=== PATIENT | female | born 1965 | race Caucasian/White ===

== ENCOUNTER → 2017-02-04 | Outpatient (CLI) | payer OTHER ==
[~2017-02-04] MED LIST: ESTR0.5T TD; GABA300C10 PO; SPIR25TA3 PO; estradiol PO
== END | disposition home or self-care (01) ==
LOC: CFH 09:53
PROVIDERS: ATTEND Neurological Surgery
DX: M47.897 Other spondylosis, lumbosacral region (principal); M47.895 Other spondylosis, thoracolumbar region; M51.26 Other intervertebral disc displacement, lumbar region; M48.07 Spinal stenosis, lumbosacral region
CPT/HCPCS: 72110; 72148

== ENCOUNTER → 2017-02-06 | Outpatient (CLI) | payer OTHER | END | disposition home or self-care (01) | LOC: STAR 12:48 | PROVIDERS: ATTEND Neurological Surgery | DX: Z01.818 Encounter for other preprocedural examination (principal); M41.84 Other forms of scoliosis, thoracic region; M50.00 Cervical disc disorder with myelopathy, unspecified cervical region; M47.892 Other spondylosis, cervical region; M25.78 Osteophyte, vertebrae; R79.1 Abnormal coagulation profile | CPT/HCPCS: 36415; 71020; 72050; 81003; 85610; 85730; 93005 ==

== ENCOUNTER 2017-02-12 11:48 | Inpatient (IN) | payer OTHER ==
[~2017-02-12] VITALS: Ht 177.8 cm; Wt 72.5 kg
[~2017-02-12 11:48] MED LIST changes: +BACITRACIN 50,000 UNIT ONE; +BUPIVACAINE/PF-EPI 0.25% 1:200K ONE; +THROMBIN 5,000 UNIT VIAL TP ONE; +VANCOMYCIN 1,000 MG ONE
[2017-02-12] MEDS ORDERED: LACTATED RINGERS 1,000 ML IV SCH (12:15)
[2017-02-12] MEDS ORDERED: KETAMINE 10 MG/ML, 20ML ONE (14:37)
[2017-02-12] MEDS ORDERED: MIDAZOLAM 1 MG/ML, 2ML ONE (14:37)
[2017-02-12] MEDS ORDERED: FENTANYL PF 250 MCG/5ML ONE (14:37)
[2017-02-12] MEDS ORDERED: PROPOFOL 10 MG/ML, 50ML ONE (16:27)
[2017-02-12] MEDS ORDERED: ONDANSETRON 2MG/ML, 2ML ONE (16:27)
[2017-02-12] MEDS ORDERED: SUCCINYLCHOLINE 20 MG/ML, 10ML ONE (16:27)
[2017-02-12] MEDS ORDERED: PROPOFOL 10 MG/ML, 20ML ONE (16:27)
[2017-02-12] MEDS ORDERED: EPHEDRINE 50 MG/ML, 1ML ONE (16:27)
[2017-02-12] MEDS ORDERED: PHENYLEPHRINE 10 MG/ML ONE (16:27)
[2017-02-12] MEDS ORDERED: CEFAZOLIN 1,000 MG ONE (16:27)
[2017-02-12] MEDS ORDERED: DEXAMETHASONE 4 MG/ML, 5ML ONE (16:27)
[2017-02-12] MEDS ORDERED: PROMETHAZINE 25 MG/ML, 1ML IV PRN (17:30)
[2017-02-12] MEDS ORDERED: ONDANSETRON 2MG/ML, 2ML IVPush PRN (17:30)
[2017-02-12] MEDS ORDERED: ALBUTEROL/IPRATROPIUM 2.5MG/0.5MG, 3 ML NPPB PRN (17:30)
[2017-02-12] MEDS ORDERED: hydrALAzine 20 MG/ML, 1ML IV PRN (17:30)
[2017-02-12] MEDS ORDERED: MEPERIDINE/PF 25MG/0.5ML IVPush PRN (17:30)
[2017-02-12] MEDS ORDERED: LABETALOL 5MG/ML, 20ML IV PRN (17:30)
[2017-02-12] MEDS ORDERED: MIDAZOLAM 1 MG/ML, 2ML IV PRN (17:30)
[2017-02-12] MEDS ORDERED: ACETAMINOPHEN 325 MG TABLET PO PRN (17:30)
[2017-02-12] MEDS ORDERED: HYDROmorphone 1 MG/ML, 1ML IV PRN (17:30)
[2017-02-12] MEDS ORDERED: HYDROcodone/APAP 7.5-325MG/15ML UDC PO PRN (17:30)
[2017-02-12] MEDS ORDERED: METOCLOPRAMIDE 5 MG/ML, 2ML IV PRN (17:30)
[2017-02-12] MEDS ORDERED: DIAZEPAM 5 MG/ML, 2ML ONE (18:30)
[2017-02-12] MEDS ORDERED: FENTANYL PF 100 MCG/2ML ONE (18:30)
[2017-02-12] MEDS ORDERED: HYDROmorphone PCA 30 MG/30 ML ONE (18:30)
[2017-02-12] MEDS: FENTANYL PF 100 MCG/2ML IV PRN ×2 (18:32→18:41)
[2017-02-12] MEDS: DIAZEPAM 5 MG/ML, 2ML IV PRN ×4 (18:48→19:11)
[2017-02-12] MEDS ORDERED: MEPERIDINE/PF 25MG/0.5ML ONE (19:00)
[2017-02-12] MEDS ORDERED: HYDROmorphone PCA 30 MG/30 ML IV PRN (20:00)
[2017-02-12 20:01] VITALS: BP 126/75
[2017-02-12] MEDS ORDERED: BISACODYL 10 MG SUPP PR PRN (20:30)
[2017-02-12] MEDS ORDERED: DIPHENHYDRAMINE 25 MG CAPSULE PO PRN (20:30)
[2017-02-12] MEDS ORDERED: MAGNESIUM HYDROXIDE 8%, 30ML UDC PO PRN (20:30)
[2017-02-12] MEDS ORDERED: TIZANIDINE 4MG TABLET PO PRN (20:30)
[2017-02-12] MEDS ORDERED: ONDANSETRON 2MG/ML, 2ML IV PRN (20:30)
[2017-02-12] MEDS ORDERED: DIPHENHYDRAMINE 50 MG/ML, 1ML IVPush PRN ×3 (20:30)
[2017-02-12] MEDS ORDERED: morphine SULFATE 10 MG/ML, 1ML IV PRN (20:30)
[2017-02-12] MEDS ORDERED: DIPHENHYDRAMINE 50 MG CAPSULE PO PRN (20:30)
[2017-02-12] MEDS ORDERED: PHARMACY MAY ADJ FOR RENAL FX MC PRN (20:30)
[2017-02-12] MEDS ORDERED: OXYcodone/APAP 5/325MG TABLET PO PRN (20:30)
[2017-02-12] MEDS: ESTRADIOL MC SCH (21:00)
[2017-02-12] MEDS ORDERED: GABAPENTIN 300 MG CAPSULE PO SCH (21:00)
[2017-02-12] MEDS: NS + 20MEQ KCL 1,000 ML IV SCH (23:59)
[2017-02-12] MEDS: CEFAZOLIN PMX 1GM/50ML 50 ML IVPB SCH (23:59)
[2017-02-13 04:32] VITALS: BP 119/64
[2017-02-13] MEDS: ESTRADIOL MC SCH ×2 (05:00→13:21)
[2017-02-13] MEDS: HYDROcodone/APAP 5/325 TABLET PO PRN ×2 (05:36→09:51)
[2017-02-13 07:24] VITALS: BP 114/72
[2017-02-13] MEDS ORDERED: SENNA/DOCUSATE TABLET PO SCH (09:00)
[2017-02-13] MEDS ORDERED: SPIRONOLACTONE 25 MG TABLET PO SCH (09:00)
[2017-02-13] MEDS: NS + 20MEQ KCL 1,000 ML IV SCH (09:36)
[2017-02-13] MEDS: CEFAZOLIN PMX 1GM/50ML 50 ML IVPB SCH (09:49)
[2017-02-13 12:26] VITALS: BP 108/75
[2017-02-13] MEDS ORDERED: PNEUMOCOCCAL 23 VACCINE IM-VACC STA (13:01)
[2017-02-13] MEDS ORDERED: HYDR-3307 PO (13:57)
[2017-02-13] MEDS ORDERED: GABA300C10 PO (13:57)
[2017-02-13] MEDS ORDERED: TIZA2CAP2 PO (13:59)
== END 2017-02-13 14:17 | disposition home or self-care (01) | DRG 472 ==
LOC: OUT 11:48 → EDSTATUS 12:00 → 4NOR 19:58 → OUT 22:25 → DCLOUNGE 02-13 13:45
PROVIDERS: ADMIT Neurological Surgery; ATTEND Neurological Surgery
PROC: 0RB30ZZ Excision of Cervical Vertebral Disc, Open Approach (ICD-10-PCS; 2017-02-12)
PROC: 4A11X4G Monitoring of Peripheral Nervous Electrical Activity, Intraoperative, External Approach (ICD-10-PCS; 2017-02-12)
PROC: 0RG20A0 Fusion of 2 or more Cervical Vertebral Joints with Interbody Fusion Device, Anterior Approach, Anterior Column, Open Approach (ICD-10-PCS; principal; 2017-02-12 14:30)
DX: M50.122 Cervical disc disorder at C5-C6 level with radiculopathy (principal); M50.022 Cervical disc disorder at C5-C6 level with myelopathy; G62.9 Polyneuropathy, unspecified; M25.78 Osteophyte, vertebrae; Z82.61 Family history of arthritis; Z82.49 Family history of ischemic heart disease and other diseases of the circulatory system; Z83.3 Family history of diabetes mellitus; Z81.8 Family history of other mental and behavioral disorders; Z80.9 Family history of malignant neoplasm, unspecified; Z82.3 Family history of stroke; Z87.891 Personal history of nicotine dependence
CPT/HCPCS: 36415; 72040; 86850; 86900; 90732; 95938; 95941; C1713; C1776; J0690; J1100; J1170; J2175; J2250; J2405; J2704; J3010; J3360; J3370; J3480; J0330; J2370; J7120

== ENCOUNTER → 2017-03-29 | Outpatient (CLI) | payer OTHER ==
[~2017-03-29] MED LIST changes: -BACITRACIN 50,000 UNIT ONE; -BUPIVACAINE/PF-EPI 0.25% 1:200K ONE; +HYDR-3307 PO; -THROMBIN 5,000 UNIT VIAL TP ONE; +TIZA2CAP2 PO; -VANCOMYCIN 1,000 MG ONE
== END | disposition home or self-care (01) ==
LOC: CFH 09:46
PROVIDERS: ATTEND Neurological Surgery
DX: M50.022 Cervical disc disorder at C5-C6 level with myelopathy (principal); M50.023 Cervical disc disorder at C6-C7 level with myelopathy; Z98.890 Other specified postprocedural states; Z98.1 Arthrodesis status
CPT/HCPCS: 72050

== ENCOUNTER → 2017-09-06 | Outpatient (CLI) | payer OTHER ==
[~2017-09-06] MED LIST changes: +OMNIPAQUE 350 MG/ML, 100ML BOTTLE ONE
== END | disposition home or self-care (01) ==
LOC: RAD 13:30
PROVIDERS: ATTEND Internal Medicine
DX: K59.00 Constipation, unspecified (principal); N83.01 Follicular cyst of right ovary; M47.894 Other spondylosis, thoracic region
CPT/HCPCS: 74177; Q9967

== ENCOUNTER → 2018-06-30 | Outpatient (CLI) | payer OTHER ==
[~2018-06-30] MED LIST changes: +L.AC1CAP6 PO; -OMNIPAQUE 350 MG/ML, 100ML BOTTLE ONE; -SPIR25TA3 PO; +SPIR25TA5 PO
== END | disposition home or self-care (01) ==
LOC: CFH 08:51 → EDSTATUS 09:15
PROVIDERS: ATTEND Nurse Practitioner Family
DX: R92.2 Inconclusive mammogram (principal)
CPT/HCPCS: 77066